=== PATIENT | female | born 1980 | race Caucasian/White ===

== ENCOUNTER 2021-01-13 09:35 | Day surgery (SDC) | payer OTHER ==
[2021-01-10 15:34] VITALS: BMI 28.0
[2021-01-13 11:49] LABS: Hemoglobin 13.9 g/dL (12.0-15.5); Mean Corpuscular HGB CONC 33.7 g/dL (32.0-36.0); Mean Corpuscular Hemoglobin 31.3 pg (27.0-33.0); Mean Corpuscular Volume 92.8 fl (81.6-98.3); Mean Platelet Volume 8.7 fl (7.4-10.4); Platelet Count 344 10x3/uL (150-450); RBC Distribution Width 12.4 % (11.5-14.5); Red Blood Cell (RBC) Count 4.44 10x6/uL (3.90-5.03); White Blood Cell (WBC) Count 6.3 10x3/uL (3.5-10.5)
[2021-01-13] MEDS ORDERED: Lidocaine 1% MPF 2 ML VIAL ONE (11:55)
[2021-01-13 12:25] LABS: Anion Gap 15 mmol/L (10-20); BUN (Urea Nitrogen) 12 mg/dL (7.0-18.7); Calc. Creatinine Clearance 101 mL/min (70-130); Carbon Dioxide 27 mmol/L (22-29); Chloride 103 mmol/L (98-107); Glucose 89 mg/dL (70-105); Potassium 4.3 mmol/L (3.5-5.1); Sodium 141 mmol/L (136-145)
[2021-01-13] MEDS ORDERED: PROPOFOL 20 ML ONE (13:11)
[2021-01-13] MEDS ORDERED: Bupivacaine PF 0.5% 30 ML VIAL ONE (13:12)
[2021-01-13] MEDS ORDERED: Fentanyl 100 MCG/2 ML VIAL ONE ×2 (13:12→16:07)
[2021-01-13] MEDS ORDERED: Neomycin-Polymyxin 1 ML AMP ONE (13:12)
[2021-01-13] MEDS ORDERED: Ketorolac Tromethamine 15 MG/ML VIAL ONE (13:12)
[2021-01-13] MEDS ORDERED: Dexamethasone 20 MG/5 ML VIAL ONE (13:16)
[2021-01-13] MEDS ORDERED: diphenhydrAMINE 50 MG/ML VIAL ONE (13:16)
[2021-01-13] MEDS ORDERED: Lidocaine 2% PF 5 ML VIAL ONE (13:16)
[2021-01-13] MEDS ORDERED: Ondansetron PF 4 MG/2 ML Vial ONE (13:16)
[2021-01-13 13:32] LABS: Calcium 9.6 mg/dL (7.8-10.44)
[2021-01-13] MEDS ORDERED: Midazolam HCl 2 mg/2 ml Vial ONE (13:41)
[2021-01-13] MEDS ORDERED: PHENYLEPHRINE-NS 100 MCG/ML 10 ML SYRINGE ONE (14:30)
== END 2021-01-13 16:55 | disposition home or self-care (01) ==
LOC: CSHSDC 09:35
PROVIDERS: ATTEND Podiatrist Foot & Ankle Surgery
PROC: 0SGL04Z Fusion of Left Tarsometatarsal Joint with Internal Fixation Device, Open Approach (ICD-10-PCS; principal; 2021-01-13)
DX: M20.12 Hallux valgus (acquired), left foot (principal); M21.612 Bunion of left foot; I10 Essential (primary) hypertension; K21.9 Gastro-esophageal reflux disease without esophagitis; K58.9 Irritable bowel syndrome, unspecified; G43.909 Migraine, unspecified, not intractable, without status migrainosus; M17.0 Bilateral primary osteoarthritis of knee; M47.9 Spondylosis, unspecified; F32.9 Major depressive disorder, single episode, unspecified; C92.00 Acute myeloblastic leukemia, not having achieved remission; Z79.899 Other long term (current) drug therapy; Z88.8 Allergy status to other drugs, medicaments and biological substances; Z88.6 Allergy status to analgesic agent
CPT/HCPCS: 80048; 85027; C1713; J1100; J1200; J1885; J2001; J2250; J2405; J2704; J3010; J3490; S0020